=== PATIENT | male | born 1980 | race Caucasian/White ===

== ENCOUNTER 2022-09-01 09:05 | Emergency (ER) | payer BC ==
[~2022-09-01] VITALS: Ht 177.8 cm; Wt 70.3 kg
[~2022-09-01 09:05] MED LIST: PARAFON FORTE500 MG PO; TRAMADOL50 MG PO
[2022-09-01] MEDS ORDERED: ZANAFLEX4 MG PO (12:48)
[2022-09-01] MEDS ORDERED: NAPROSYN500 MG PO (12:48)
[2022-09-01] MEDS ORDERED: MEDROL DOSEPAK4 MG PO (12:48)
== END 2022-09-01 12:56 | disposition home or self-care (01) ==
LOC: ED 09:05
DX: S39.012A Strain of muscle, fascia and tendon of lower back, initial encounter (principal); S29.019A Strain of muscle and tendon of unspecified wall of thorax, initial encounter; X50.0XXA Overexertion from strenuous movement or load, initial encounter; Y93.89 Activity, other specified; Y92.89 Other specified places as the place of occurrence of the external cause; Y99.8 Other external cause status

== ENCOUNTER 2025-04-29 13:20 | Emergency (ER) | payer SELFPAY ==
[~2025-04-29] VITALS: Ht 177.8 cm; Wt 68.0 kg
[~2025-04-29 13:20] MED LIST changes: +MEDROL DOSEPAK4 MG PO; +NAPROSYN500 MG PO; +ZANAFLEX4 MG PO
[2025-04-29] MEDS ORDERED: Acetaminophen/Hydrocodone 5 MG/325 MG TABLET PO ONE (13:50)
[2025-04-29] MEDS ORDERED: CEPHALEXIN 500 MG CAP PO ONE (13:50)
[2025-04-29] MEDS ORDERED: CEPHALEXIN500 M1 PO (15:10)
[2025-04-29] MEDS ORDERED: TRAMADOL HCL50 MG PO ×2 (15:10→15:15)
[2025-04-29] MEDS ORDERED: CYCLOBENZAPRINE10 MG PO (15:10)
[2025-04-29] MEDS ORDERED: PREDNISONE10 M1 PO (15:10)
== END 2025-04-29 15:27 | disposition home or self-care (01) ==
LOC: ED 13:20
DX: S70.01XA Contusion of right hip, initial encounter (principal); S40.011A Contusion of right shoulder, initial encounter; S40.211A Abrasion of right shoulder, initial encounter; S50.311A Abrasion of right elbow, initial encounter; S80.211A Abrasion, right knee, initial encounter; S60.512A Abrasion of left hand, initial encounter; R07.81 Pleurodynia; R42 Dizziness and giddiness; M54.9 Dorsalgia, unspecified; R53.83 Other fatigue; R07.89 Other chest pain; F17.200 Nicotine dependence, unspecified, uncomplicated; Z79.899 Other long term (current) drug therapy; W01.0XXA Fall on same level from slipping, tripping and stumbling without subsequent striking against object, initial encounter; Y93.89 Activity, other specified; Y92.89 Other specified places as the place of occurrence of the external cause; Y99.8 Other external cause status